=== PATIENT | female | born 1950 | race Caucasian/White ===

== ENCOUNTER → 2024-07-14 11:31 | Outpatient (BNVA) | payer MEDICARE, SELFPAY | PROVIDERS: PCP Physician Assistant Medical; Visit Provider Physician Assistant Medical | DX: R01.1 Cardiac murmur, unspecified (principal); E78.00 Pure hypercholesterolemia, unspecified; I10 Essential (primary) hypertension; R73.03 Prediabetes; M54.50 Low back pain, unspecified; M79.605 Pain in left leg; G89.29 Other chronic pain; M25.561 Pain in right knee; M25.562 Pain in left knee; M43.10 Spondylolisthesis, site unspecified; M17.0 Bilateral primary osteoarthritis of knee; M47.816 Spondylosis without myelopathy or radiculopathy, lumbar region; Z79.899 Other long term (current) drug therapy | CPT/HCPCS: 99212 ==

== ENCOUNTER 2025-01-12 07:48 | Outpatient (REF) | payer MEDICARE, SELFPAY ==
[2025-01-12 12:11] LABS: Alanine Aminotransferase 14 U/L (0-31); Albumin Level 4.1 g/dL (3.5-5.0); Alkaline Phosphatase 74 U/L (39-117); Anion Gap 12 (12-20); Aspartate Amino Transferase 23 U/L (5-31); Bilirubin Total 0.6 mg/dL (0.0-1.0); Blood Urea Nitrogen 21 mg/dL (9-16); Calcium 9.5 mg/dL (8.4-10.2); Carbon Dioxide 30 mmol/L (22-29); Chloride 104 mmol/L (96-108); Cholesterol 166 mg/dL (<200); Estimated Glomerular Filt Rate > 60; Glucose Random 127 mg/dL (60-115); HDL Cholesterol 79 mg/dL (>40); LDL Cholesterol Calculated 76 mg/dL (<100); Sodium 142 mmol/L (135-145); Triglycerides 58 mg/dL (<150)
[2025-01-12 12:16] LABS: Estimated Average Glucose 120 mg/dL; Hemoglobin A1c % 5.8 % (<6.0); Total Hemoglobin (HGBA1C) 3649.7575 umol/L
== END 2025-01-12 07:49 | disposition home or self-care (01) ==
LOC: HO.WFDLDS 07:48
PROVIDERS: Visit Provider Nurse Practitioner Family
DX: I10 Essential (primary) hypertension (principal); R73.03 Prediabetes
CPT/HCPCS: 36415; 80053; 80061; 83036

== ENCOUNTER 2025-01-15 08:02 | Outpatient (AMB) | payer MEDICARE, SELFPAY ==
--- NOTE | 2025-01-15 08:18 | AM.OFFVISMDC ---
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 Hypertension-taking atenolol 50 mg and amlodipine to 10 mg. She is still taking atenolol 50 mg. Her blood pressure is well-controlled. She was previously on chlorthalidone which was discontinued due to urinary frequency. Patient has not have the echocardiogram done yet that was ordered to evaluate her heart murmur. Denies chest pain, leg swelling, shortness of breath or palpitations. Patient says [facility] did not call her to schedule it. Anxiety-she did not tolerate duloxetine. She is taking 10 mg of Lexapro. She feels like this helps, and she wants to remain on the current dose. She has noticed significant decrease in anxiety with this medication. Hyperlipidemia-taking atorvastatin 20 mg daily. LDL is at goal. We reviewed her lab results. She had x-rays which showed spondylolisthesis in her lower back, degenerative changes in her lower back and moderate bilateral knee arthritis. She was referred to physiatry, but she is holding off on this because her back pain improved after she saw Orthopedics and had cortisone injections. She is having gel injections in January. She will receive tetanus immunization at her pharmacy. She declines colonoscopy. Agreeable to Cologuard. ROS: Constitutional: No unexplained weight loss, fever, chills, fatigue or night sweats. Respiratory: No shortness of breath Cardiovascular: No chest pain Neurologic: No headache, dizziness, syncope Endocrine: No polyuria or polydipsia. Psychiatric: No SI/HI. Physical exam: Constitutional: Alert, in no distress. Eyes: Pupils are equal, round and reactive to light. Extraocular muscles intact. Neck: Supple, Full range of motion. No lymphadenopathy. Respiratory: Clear to auscultation. Cardiovascular: S1 S2 regular. I-II/ systolic murmur Musculoskeletal: No lower extremity or knee swelling. No redness or warmth of knee joints. Bilateral knee crepitus. Left knee is stiff on exam but has full range of motion. Patient has pain with squatting. Antalgic gait. She has lower back pain with extension and flexion. No midline spinal tenderness. Extremities: Warm and well perfused. No clubbing, cyanosis or edema. Psychiatric: Normal mood and affect [facility] Medical History (Updated 12/17/24 @ 10:48 by Dolores Avila) Osteoarthritis of knees, bilateral Lumbar spondylosis Spondylolisthesis Low back pain radiating to left leg Bilateral knee pain Prediabetes Obesity Knee osteoarthritis Insomnia Hypokalemia HTN (hypertension) Hyperlipidemia Heart murmur Dense breast tissue Bilateral hand pain Anxiety state Surgical History (Updated 12/17/24 @ 10:48 by Dolores Avila) H/O: hysterectomy Social History (System 12/17/24 @ 10:48 by Dolores Avila) Housing: House Patient Tobacco Use Status: Former Tobacco user Cigarette Packs Per Day: 0.25 Years Smoked: 20 e-Cigarette/Vaping Use: Never Used Second Hand Smoke Exposure: No service: No Current occupational status: retired Cognitive needs: No Hearing needs: No Vision needs: No Questionnaire Mini Mental State Exam (MMSE) Orientation What is the (year) (season) (date) (day) (month)?: year (), season (spring), date (December), day () and month (December) Where are we (state) (county) (town or city) (hospital) (floor)?: state ([place]), county ([place]), town or city ([place]), hospital/clinic ([facility]) and floor ([place]) Registration Name of 3 unrelated objects clearly and slowly, then ask patient to repeat all 3 of them. (1st repeat determines score. Make sure they can repeat all three): object 1 (ball ), object 2 (flag) and object 3 (tree) Attention & Calculation (CHOOSE ONE) Ask pt to begin with 100 & count backward by 7. Stop after 5 repeats. If pt cannot ask them to spell the word WORLD backward.: 93 (93) Spell WORLD backwards (DLROW): 2 letters (DL) Recall Ask patient to repeat the 3 items from question #3.: object 1 (Flag), object 2 (tree) and object 3 (ball) Language Show patient a wristwatch & ask what it is. Repeat for pencil.: watch and pencil Ask the patient to repeat the phrase 'No ifs, ands, or buts' after you.: correct Ask the patient to 'take a piece of paper with their right hand' 'fold paper in half' 'place paper on floor': take paper in right hand, fold paper in half and place paper on floor Print the sentence 'CLOSE YOUR EYES' on a piece. If patient actually closes eyes then score.: followed written direction Give patient a blank piece of paper & ask to write a sentence. Score if it contains a noun & verb.: sentence contains subject and verb Ask patient to copy figure of intersecting pentagons exactly. Score if all 10 angles & 2 intersects are included.: all 10 angles present & 2 are intersected Score Score: 28 Physical Exam Vital Signs: Last Vital Signs Pulse 76 01/15/25 08:30 Resp 14 01/15/25 08:30 BP 126/62 01/15/25 08:30 Pulse Ox 95 01/15/25 08:30 Oxygen Delivery Method Room Air 01/15/25 08:30 BMI result Body Mass Index 36.3 Assessment & Plan Assessment & Plan Orders: Referrals Cologuard Test Z12.11 - Encounter for screening for malignant neoplasm of colon, Z12.12 - Encounter for screening for malignant neoplasm of rectum Coding
[2025-01-15 08:30] VITALS: BP 126/62; PULSE 76; RESP 14; O2SAT 95; BMI 36.3
--- NOTE | 2025-01-16 10:04 | MHC.OFFVIS ---
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 Hypertension-taking atenolol 50 mg and amlodipine to 10 mg. She is still taking atenolol 50 mg. Her blood pressure is well-controlled. She was previously on chlorthalidone which was discontinued due to urinary frequency. Patient has not have the echocardiogram done yet that was ordered to evaluate her heart murmur. Denies chest pain, leg swelling, shortness of breath or palpitations. Patient says [facility] did not call her to schedule it. Anxiety-she did not tolerate duloxetine. She is taking 10 mg of Lexapro. She feels like this helps, and she wants to remain on the current dose. She has noticed significant decrease in anxiety with this medication. Hyperlipidemia-taking atorvastatin 20 mg daily. LDL is at goal. We reviewed her lab results. She had x-rays which showed spondylolisthesis in her lower back, degenerative changes in her lower back and moderate bilateral knee arthritis. She was referred to physiatry, but she is holding off on this because her back pain improved after she saw Orthopedics and had cortisone injections. She is having gel injections in January. She will receive tetanus immunization at her pharmacy. She is prediabetic with a hemoglobin A1c of 5.9%. She declines colonoscopy. Agreeable to Cologuard. I ordered a mammogram last summer, but she did not have it done yet. She would like it done at [facility]. She was provided with the order and instructed to call to schedule this. ROS: Constitutional: No unexplained weight loss, fever, chills, fatigue or night sweats. Eyes: No vision changes, blurry vision, double vision, eye pain, eye redness, eye discharge. ENT: No hearing loss, sneezing, congestion, runny nose or sore throat. Respiratory: No shortness of breath, cough or sputum production. Cardiovascular: No chest pain, chest pressure or chest discomfort. No palpitations or pedal edema. Gastrointestinal: No anorexia, nausea, vomiting or diarrhea. No abdominal pain or blood in stool. Genitourinary: No dysuria, hematuria, urinary frequency. Neurologic: No headache, dizziness, syncope, unilateral weakness, ataxia, numbness or tingling in the extremities. Musculoskeletal: See HPI Hematologic/Lymphatics: No bleeding or bruising. No painful lymph nodes. Skin: No rash or itching. Endocrine: No cold or heat intolerance. No polyuria or polydipsia. Psychiatric: No depression or anxiety. No SI/HI. Physical exam: Constitutional: Alert, in no distress. Head: Normocephalic. Eyes: Pupils are equal, round and reactive to light. Extraocular muscles intact. Ear, Nose and Throat: Canals clear. TMs normal. Normal nasal mucosa. No nasal discharge. No oral lesions. Neck: Supple, Full range of motion. No lymphadenopathy. No palpable thyroid masses. Respiratory: Clear to auscultation. Cardiovascular: S1 S2 regular. 2/6 systolic murmur. No carotid bruits. Gastrointestinal: Abdomen soft, non-tender, non-distended. Normal bowel sounds. No palpable masses. Neurologic: No focal neurological deficits. Symmetric patellar reflexes. Moves all extremities spontaneously. Sensation intact bilaterally. Skin: No rashes Musculoskeletal: No gross deformities. Normal range of motion. Extremities: Warm and well perfused. Intact peripheral pulses. 1+ pedal edema. Psychiatric: Normal mood and affect [facility] Medical History (Updated 01/16/25 @ 10:01 by CHAITANYA Jansen) Routine physical examination Osteoarthritis of knees, bilateral Lumbar spondylosis Spondylolisthesis Low back pain radiating to left leg Bilateral knee pain Prediabetes Obesity Knee osteoarthritis Insomnia Hypokalemia HTN (hypertension) Hyperlipidemia Heart murmur Dense breast tissue Bilateral hand pain Anxiety state Surgical History (Updated 12/17/24 @ 10:48 by Dolores Avila) H/O: hysterectomy Social History (System 12/17/24 @ 10:48 by Dolores Avila) Housing: House Patient Tobacco Use Status: Former Tobacco user Cigarette Packs Per Day: 0.25 Years Smoked: 20 e-Cigarette/Vaping Use: Never Used Second Hand Smoke Exposure: No service: No Current occupational status: retired Cognitive needs: No Hearing needs: No Vision needs: No Physical Exam Vital Signs: Last Vital Signs Pulse 76 01/15/25 08:30 Resp 14 01/15/25 08:30 BP 126/62 01/15/25 08:30 Pulse Ox 95 01/15/25 08:30 Oxygen Delivery Method Room Air 01/15/25 08:30 BMI result Body Mass Index 36.3 Assessment & Plan Assessment & Plan (1) Routine physical examination: Code(s): Z00.00 - Encounter for general adult medical examination without abnormal findings Category: Medical Plan: Patient is seen today for a routine physical. As part of this visit we reviewed the following issues, which are considered and essential part of preventative health in this age group: - Breast Cancer screening - Annual Independent Distributor exam- declined - Screening for colon cancer - Cholesterol screening - Osteoporosis prevention including calcium/vitamin D intake, weight bearing exercise & smoking cessation - Nutritional and exercise counseling - Counseling of injury prevention including fire prevention, smoke alarms and seat belt usage - Screening for depression - Education about skin cancer - Recommendations about immunizations - Recommendation of an eye exam (2) HTN (hypertension): Code(s): I10 - Essential (primary) hypertension Category: Medical Qualifiers: Hypertension type: primary hypertension Qualified Code(s): I10 - Essential (primary) hypertension Plan: Controlled. Continue current regimen. Recommended low-sodium diet and avoidance of caffeine. (3) Hyperlipidemia: Code(s): E78.5 - Hyperlipidemia, unspecified Category: Medical Qualifiers: Hyperlipidemia type: pure hypercholesterolemia Qualified Code(s): E78.00 - Pure hypercholesterolemia, unspecified Plan: Controlled. Continue Mediterranean diet and cholesterol medication. (4) Heart murmur: Code(s): R01.1 - Cardiac murmur, unspecified Category: Medical Plan: [place] [facility] [place] agreed. (5) Prediabetes: Code(s): R73.03 - Prediabetes Category: Medical Plan: Patient declines medication against medical recommendation. Continue low carbohydrate, low sugar diet. Exercise to promote weight loss. Monitor. Plan Follow up in 6 months Orders: Referrals Cologuard Test Z12.11 - Encounter for screening for malignant neoplasm of colon, Z12.12 - Encounter for screening for malignant neoplasm of rectum Coding Level of Care Code Est Pt Prev Care >65y(45694) Diagnoses Routine physical examination Z00.00 Primary hypertension I10 Hypertension type: primary hypertension Pure hypercholesterolemia E78.00 Hyperlipidemia type: pure hypercholesterolemia Heart murmur R01.1 Prediabetes R73.03
== END 2025-01-15 09:13 | disposition home or self-care (01) ==
PROVIDERS: PCP Physician Assistant Medical; Visit Provider Physician Assistant Medical
DX: Z00.00 Encounter for general adult medical examination without abnormal findings (principal); I10 Essential (primary) hypertension; E78.00 Pure hypercholesterolemia, unspecified; R01.1 Cardiac murmur, unspecified; R73.03 Prediabetes

== ENCOUNTER → 2025-01-15 08:02 | Outpatient (BNVA) | payer MEDICARE, SELFPAY | PROVIDERS: PCP Physician Assistant Medical; Visit Provider Physician Assistant Medical | DX: Z00.00 Encounter for general adult medical examination without abnormal findings (principal); I10 Essential (primary) hypertension; M17.0 Bilateral primary osteoarthritis of knee; E66.9 Obesity, unspecified; R73.03 Prediabetes; E78.00 Pure hypercholesterolemia, unspecified; Z68.36 Body mass index [BMI] 36.0-36.9, adult; Z87.891 Personal history of nicotine dependence | CPT/HCPCS: 99397 ==

== ENCOUNTER 2025-07-16 07:58 | Outpatient (REF) | payer MEDICARE, SELFPAY ==
[2025-07-16 11:39] LABS: Hemoglobin A1C 148.1462 umol/L; Total Hemoglobin (HGBA1C) 3537.3461 umol/L
[2025-07-16 11:54] LABS: Anion Gap 13 (12-20); Blood Urea Nitrogen 21 mg/dL (9-16); Calcium 9.4 mg/dL (8.4-10.2); Carbon Dioxide 25 mmol/L (22-29); Chloride 110 mmol/L (96-108); Estimated Glomerular Filt Rate > 60; Potassium 3.1 mmol/L (3.3-5.1); Sodium 145 mmol/L (135-145)
== END 2025-07-16 07:59 | disposition home or self-care (01) ==
LOC: HO.WFDLDS 07:58
PROVIDERS: Visit Provider Physician Assistant Medical
DX: I10 Essential (primary) hypertension (principal); R73.9 Hyperglycemia, unspecified
CPT/HCPCS: 36415; 80048; 83036

== ENCOUNTER 2025-07-20 08:40 | Outpatient (AMB) | payer MEDICARE, SELFPAY ==
--- NOTE | 2025-07-20 08:45 | MHC.PC.OV ---
Vital Signs 07/20/25 08:50 07/20/25 09:20 Height 5 ft 3.8 in Weight 194 lb 6 oz BMI 33.6 BP 138/64 126/66 Blood Pressure Location Lt brachial Position Sitting Respiration 14 Pulse 93 Pulse Source Pulse Oximeter Temp 97.8 F Temp Source Temporal Artery Scan Pulse Oximetry (%) 94 Oxygen Delivery Method Room Air Intake Visit Reasons: follow up Intake Note: Dolores presents in the office today for a follow up to hypertension. Allergies No Known Allergies Allergy (Verified 07/20/25 08:48) Medication List - Last Reconciled 07/20/25 by CHAITANYA Jansen amlodipine 10 mg PO DAILY atenolol 50 mg PO DAILY atorvastatin 20 mg PO DAILY calcium carbonate 600 mg PO DAILY escitalopram oxalate (Lexapro) 10 mg PO DAILY multivitamin 1 tab PO DAILY Tobacco use date assessed: 07/20/25 Fall risk assessment: No Falls in past year Last assessed Fall Risk: 07/20/25 Dental Screening Dental Screen Date: 07/20/25 Did you have a dental visit in the last 12 months?: No Did you have a dental problem in the last 6 months where you did not have access to dental care?: No Was dental information given to patient?: Patient declined HPI HPI Comments History of Present Illness Details This is a 75-year-old female with a past medical history of anxiety, heart murmur, hyperlipidemia, hypertension, insomnia, osteoarthritis of her knees, obesity and prediabetes presenting for follow up. Patient had lab work done last week that showed mild hypokalemia. She is not on diuretics. She's had some loose stools that are more frequent and urgent for a couple weeks. Appetite is good. She did not do Cologuard. Symptoms are stable. No dietary changes. Denies family history of colon cancer. Denies blood in stools, abdominal pain, diarrhea, nausea, vomiting or recent travel. Hypertension-taking atenolol 50 mg and amlodipine to 10 mg. She was previously on chlorthalidone which was discontinued due to urinary frequency. Patient has not have the echocardiogram done yet that was ordered to evaluate her heart murmur. We have discussed this on more than 1 occasion. Denies chest pain, leg swelling, shortness of breath or palpitations. Anxiety-she did not tolerate duloxetine. She is taking 10 mg of Lexapro. She feels like this helps, and she wants to remain on the current dose. She has noticed significant decrease in anxiety with this medication. She still has healthcare anxiety. Hyperlipidemia-taking atorvastatin 20 mg daily. She had x-rays which showed spondylolisthesis in her lower back, degenerative changes in her lower back and moderate bilateral knee arthritis. She was referred to physiatry, but she is holding off on this because her back pain improved after she saw Orthopedics and had cortisone injections in her knees. She has knee injections scheduled today. She is prediabetic with a hemoglobin A1c of 6%. She started following a healthier diet since her retired, and she lost about 18 lb per her home scale. She still has not done her mammogram. She is due for bone density test. ROS: Constitutional: No unexplained weight loss, fever, chills, fatigue or night sweats. Respiratory: No shortness of breath, cough or sputum production. Cardiovascular: No chest pain, chest pressure or chest discomfort. Gastrointestinal: See HPI Genitourinary: No dysuria, hematuria, urinary frequency. Neurologic: No headache, dizziness, syncope, unilateral weakness, ataxia, numbness or tingling in the extremities. Musculoskeletal: See HPI Hematologic/Lymphatics: No bleeding or bruising. No painful lymph nodes. Skin: No rash Endocrine: No cold or heat intolerance. No polyuria or polydipsia. Psychiatric: No depression. +anxiety Physical exam: Constitutional: Alert, in no distress. Head: Normocephalic. Eyes: Pupils are equal, round and reactive to light. Extraocular muscles intact. Neck: Supple, Full range of motion. No lymphadenopathy. No palpable thyroid masses. Respiratory: Clear to auscultation. Cardiovascular: S1 S2 regular. 2/6 systolic murmur. No carotid bruits. Gastrointestinal: Abdomen soft, non-tender, non-distended. No rebound or guarding. Normal bowel sounds. No palpable masses. Extremities: Warm and well perfused. Intact peripheral pulses. 1+ pedal edema. Psychiatric: Normal mood and affect [facility] Medical History (Updated 07/20/25 @ 13:51 by CHAITANYA Jansen) Loose stools Routine physical examination Osteoarthritis of knees, bilateral Lumbar spondylosis Spondylolisthesis Low back pain radiating to left leg Bilateral knee pain Prediabetes Obesity Knee osteoarthritis Insomnia Hypokalemia HTN (hypertension) Hyperlipidemia Heart murmur Dense breast tissue Bilateral hand pain Anxiety state Surgical History (Updated 12/17/24 @ 10:48 by Dolores Avila) H/O: hysterectomy Social History (Updated 07/20/25 @ 08:50 by Albertina Palomo [facility]) Housing: House Alcohol intake: never Patient Tobacco Use Status: Former Tobacco user Cigarette Packs Per Day: 0.25 Years Smoked: 20 e-Cigarette/Vaping Use: Never Used Second Hand Smoke Exposure: No service: No Current occupational status: retired Current occupational exposures/hazards: No Cognitive needs: No Hearing needs: No Vision needs: No Questionnaire PHQ-9 Over the last 2 weeks, how often have you been bothered by any of the following problems? 1. Little interest or pleasure in doing things: not at all 2. Feeling down, depressed, or hopeless: not at all 3. Trouble falling or staying asleep, or sleeping too much: not at all 4. Feeling tired or having little energy: not at all 5. Poor appetite or overeating: not at all 6. Feeling bad about yourself - or that you are a failure or have let yourself or your family down: not at all 7. Trouble concentrating on things, such as reading the newspaper or watching television: not at all 8. Moving or speaking so slowly that other people could have noticed. Or the opposite - being so fidgety or restless that you have been moving around a lot more than usual: not at all 9. Thoughts that you would be better off or of hurting yourself in some way: not at all Total score: 0 Depression Screening Interpretation: Negative Depression Screening Done: Yes 55312 - PHQ-9 Billing: Yes Source: Developed by Drs. Artie Skelton, Bertha Ramsey, Deo Velasco and colleagues, with an educational jes from [employer]. Thrive Questionnaire Date Thrive assessed: 07/20/25 I am a: Patient What is your living situation today?: I have a steady place to live Within the past 12 months, did the food you bought not last and you didn't have the money to get more?: Never true Within the past 12 months, did you worry whether your food would run out before you got money to buy more?: Never true Do you have trouble paying for medicines?: No Do you have trouble getting transportation to medical appointments?: No Do you have trouble paying your heating and electricity bill?: No Do you have trouble taking care of your child, family member or friend?: No Do you have trouble with day-to-day activities such as bathing, preparing meals, shopping, managing finances, etc.?: No Are you currently unemployed and looking for a job?: No Are you interested in more education?: No Please select the resources that you would like help with: None Currently or been in a relationship where the following occur: No concerns reported THRIVE Score: 0 AUDIT C Alcohol Use Questionnaire (AUDIT-C) 1. How often do you have a drink containing alcohol?: Monthly or less 2. How many drinks containing alcohol do you have on a typical day when you are drinking?: 1 or 2 3. How often do you have six or more drinks on one occasion?: Never Total Score: 1 JAQUELINE-7 AMB Questionnaire JAQUELINE-7 Date JAQUELINE - 7 assessed: 07/20/25 Feeling nervous, anxious, or on edge: 0 = Not at all Not being able to stop or control worryin = Not at all Worrying too much about different things: 0 = Not at all Trouble relaxin = Not at all Being so restless that it is hard to sit still: 0 = Not at all Becoming easily annoyed or irritable: 0 = Not at all Feeling afraid as if something awful might happen: 0 = Not at all Total JAQUELINE-7 score (0-4 normal; 5-9 mild; 10-14 moderate; 15-21 severe): 0 Source: Developed by Drs. Artie Skelton, Bertha Ramsey, Deo Velasco and colleagues, with an educational jes from [employer]. JAQUELINE-7 Assessment Billing JAQUELINE-7 Assessment Tool: JAQUELINE-7 Assessment 05409 Physical exam (Primary Care) Vital Signs: Last Vital Signs Temp 97.8 F 07/20/25 08:50 Pulse 93 07/20/25 08:50 Resp 14 07/20/25 08:50 BP 126/66 07/20/25 09:20 Pulse Ox 94 07/20/25 08:50 Oxygen Delivery Method Room Air 07/20/25 08:50 BMI result Body Mass Index 33.6 Tobacco/Smoking Status: Tobacco use Status Tobacco use date assessed 07/20/25 07/20/25 08:54 Patient Tobacco Use Status Former Tobacco user 07/20/25 08:50 e-Cigarette/Vaping Use Never Used 07/20/25 08:50 PHQ-9: PHQ-9 Score PHQ-9: Total score 0 07/20/25 09:04 Depression Screening Interpretation: Negative Thrive Assessment: Date of Thrive Assessment Date Thrive assessed 07/20/25 07/20/25 08:54 Currently or been in a relationship where the following occur: No concerns reported Coding Level of Care Code Est Pt Level 4 (16633) Complex EM visit Add On G2211 Diagnoses Primary hypertension I10 Hypertension type: primary hypertension Pure hypercholesterolemia E78.00 Hyperlipidemia type: pure hypercholesterolemia Heart murmur R01.1 Prediabetes R73.03 Loose stools R19.5 Hypokalemia E87.6 Additional Codes JAQUELINE-7 Assessment Billing - JAQUELINE-7 Assessment Tool: JAQUELINE-7 Assessment 17902 ([id number]) PHQ-9 - 97557 - PHQ-9 Billing: Yes ([id number]) Assessment & Plan Assessment & Plan (1) HTN (hypertension): Code(s): I10 - Essential (primary) hypertension Category: Medical Qualifiers: Hypertension type: primary hypertension Qualified Code(s): I10 - Essential (primary) hypertension Plan: Controlled. Continue current regimen. Recommended low-sodium diet and avoidance of caffeine. (2) Hyperlipidemia: Code(s): E78.5 - Hyperlipidemia, unspecified Category: Medical Qualifiers: Hyperlipidemia type: pure hypercholesterolemia Qualified Code(s): E78.00 - Pure hypercholesterolemia, unspecified Plan: Controlled. Continue Mediterranean diet and cholesterol medication. (3) Heart murmur: Code(s): R01.1 - Cardiac murmur, unspecified Category: Medical Plan: Echocardiogram reordered to be done [facility]. I explained the importance of this to the patient and she agrees to have it done this time. (4) Prediabetes: Code(s): R73.03 - Prediabetes Category: Medical Plan: Patient has declined medication for prediabetes. Continue low carbohydrate, low sugar diet. Exercise to promote weight loss. Monitor. (5) Loose stools: Code(s): R19.5 - Other fecal abnormalities Category: Medical Plan: Exam and history with no red flags. Possible viral mild enteritis, IBS, food sensitivity. Colon cancer not high on the differential because she has no other symptoms, and this is only been going on a couple of weeks. IBD also low on differential since she has no blood or mucus in her stools, and she feels well. Patient will follow up bland diet the next couple of weeks, and she can take a probiotic or use Imodium as needed. If symptoms do not resolve over the next 10 days she will message me. If she develops blood in stools, abdominal pain, fevers she will go to the ER. (6) Hypokalemia: Code(s): E87.6 - Hypokalemia Category: Medical Plan: Recheck potassium Plan Follow up in 2 months. Addressed health maintenance with the patient. Bone density and mammogram and Cologuard ordered. Orders: Orders Potassium Today E87.6 - Hypokalemia MM screening mammo BI Today Z12.31 - Encounter for screening mammogram for malignant neoplasm of breast XR DEXA axial skeleton Today Z78.0 - Asymptomatic menopausal state CA echo transthoracic complete Today R01.1 - Cardiac murmur, unspecified Referrals Cologuard Test Z12.11 - Encounter for screening for malignant neoplasm of colon
[2025-07-20 08:50] VITALS: BP 138/64; PULSE 93; RESP 14; TEMP 36.6; O2SAT 94; BMI 33.6
[2025-07-20 09:20] VITALS: BP 126/66
== END 2025-07-20 09:31 | disposition home or self-care (01) ==
LOC: HO.HMCFM 08:40
PROVIDERS: PCP Physician Assistant Medical; Visit Provider Physician Assistant Medical
DX: I10 Essential (primary) hypertension (principal); E78.00 Pure hypercholesterolemia, unspecified; R01.1 Cardiac murmur, unspecified; R73.03 Prediabetes; R19.5 Other fecal abnormalities; E87.6 Hypokalemia

== ENCOUNTER 2025-07-20 08:40 | Outpatient (REF) | payer MEDICARE, SELFPAY ==
[2025-07-20 11:36] LABS: Potassium 3.4 mmol/L (3.3-5.1)
== END 2025-07-20 08:41 | disposition home or self-care (01) ==
LOC: HO.WFDLDS 08:40
PROVIDERS: PCP Physician Assistant Medical; Visit Provider Physician Assistant Medical
DX: E87.6 Hypokalemia (principal); I10 Essential (primary) hypertension; E78.00 Pure hypercholesterolemia, unspecified; R01.1 Cardiac murmur, unspecified; R73.03 Prediabetes; R19.5 Other fecal abnormalities; Z79.899 Other long term (current) drug therapy
CPT/HCPCS: 36415; 84132; 96127; 99212

== ENCOUNTER 2025-09-21 10:12 | Outpatient (AMB) | payer MEDICARE, SELFPAY ==
--- NOTE | 2025-09-21 10:25 | MHC.PC.OV ---
Vital Signs 09/21/25 10:35 Height 5 ft 3.8 in Weight 195 lb 6 oz BMI 33.7 BP 128/68 Blood Pressure Location Rt brachial Position Sitting Respiration 14 Pulse 84 Pulse Source Pulse Oximeter Temp 97.8 F Temp Source Temporal Artery Scan Pulse Oximetry (%) 95 Oxygen Delivery Method Room Air Intake Visit Reasons: follow up Intake Note: Ibeth presents in the office today for a follow up to hypertension and diabetes. Allergies No Known Allergies Allergy (Verified 09/21/25 10:34) Medication List - Last Reconciled 09/21/25 by CHAITANYA Jansen amlodipine 10 mg PO DAILY atenolol 50 mg PO DAILY atorvastatin 20 mg PO DAILY calcium carbonate 600 mg PO DAILY escitalopram oxalate (Lexapro) 10 mg PO DAILY multivitamin 1 tab PO DAILY Tobacco use date assessed: 09/21/25 Fall risk assessment: No Falls in past year Last assessed Fall Risk: 09/21/25 Dental Screening Dental Screen Date: 09/21/25 Did you have a dental visit in the last 12 months?: No Did you have a dental problem in the last 6 months where you did not have access to dental care?: No Was dental information given to patient?: Patient declined HPI HPI Comments History of Present Illness Details This is a 75-year-old female with a past medical history of anxiety, heart murmur, hyperlipidemia, hypertension, insomnia, osteoarthritis of her knees, obesity and prediabetes presenting for follow up. Hypertension-taking atenolol 50 mg and amlodipine to 10 mg. She was previously on chlorthalidone which was discontinued due to urinary frequency. She had an echocardiogram at [facility] on 09/03/2025 which showed no significant valve disease or regional wall motion abnormalities and LVEF 65%. Anxiety-she did not tolerate duloxetine. She is taking 10 mg of Lexapro. She feels like this helps, and she wants to remain on the current dose. She has noticed significant decrease in anxiety with this medication. She still has healthcare anxiety. Hyperlipidemia-taking atorvastatin 20 mg daily. She had x-rays which showed spondylolisthesis in her lower back, degenerative changes in her lower back and moderate bilateral knee arthritis. She was referred to physiatry, but she is holding off on this because her back pain improved after she saw Orthopedics and had cortisone injections in her knees. She also lost weight after modifying her diet, and this reduced her knee pain. She is prediabetic with a hemoglobin A1c of 6%. She started following a healthier diet since her retired 6 months ago. Mammogram showed no evidence of malignancy 09/03/2025. She had dense breast tissue and declined adjunct screening ultrasound. Bone density was done. Result requested. Cologuard negative August 2025. She received influenza vaccine at the pharmacy, and she says her other vaccinations are up-to-date. ROS: Constitutional: No unexplained weight loss, fever, chills, fatigue or night sweats. Respiratory: No shortness of breath, cough or sputum production. Cardiovascular: No chest pain, chest pressure or chest discomfort. Gastrointestinal: No nausea, vomiting, diarrhea or abdominal pain. Musculoskeletal: See HPI Psychiatric: No depression. +anxiety Physical exam: Constitutional: Alert, in no distress. Neck: Supple, Full range of motion. No lymphadenopathy. No palpable thyroid masses. Respiratory: Clear to auscultation. Cardiovascular: S1 S2 regular. 2/6 systolic murmur. Extremities: Warm and well perfused. 1+ pedal edema. Psychiatric: Normal mood and affect [facility] Medical History (Updated 09/21/25 @ 11:20 by CHAITANYA Jansen) Loose stools Routine physical examination Osteoarthritis of knees, bilateral Lumbar spondylosis Spondylolisthesis Low back pain radiating to left leg Bilateral knee pain Prediabetes Obesity Knee osteoarthritis Insomnia Hypokalemia HTN (hypertension) Hyperlipidemia Heart murmur Dense breast tissue Bilateral hand pain Anxiety state Surgical History (Updated 12/17/24 @ 10:48 by Dolores Avila) H/O: hysterectomy Social History (Updated 09/21/25 @ 10:35 by Albertina Palomo [facility]) Housing: House Alcohol intake: never Patient Tobacco Use Status: Former Tobacco user Cigarette Packs Per Day: 0.25 Years Smoked: 20 e-Cigarette/Vaping Use: Never Used Second Hand Smoke Exposure: No service: No Current occupational status: retired Current occupational exposures/hazards: No Cognitive needs: No Hearing needs: No Vision needs: No Questionnaire Thrive Questionnaire Date Thrive assessed: 07/13/25 I am a: Patient What is your living situation today?: I have a steady place to live Within the past 12 months, did the food you bought not last and you didn't have the money to get more?: Never true Within the past 12 months, did you worry whether your food would run out before you got money to buy more?: Never true Do you have trouble paying for medicines?: No Do you have trouble getting transportation to medical appointments?: No Do you have trouble paying your heating and electricity bill?: No Do you have trouble taking care of your child, family member or friend?: No Do you have trouble with day-to-day activities such as bathing, preparing meals, shopping, managing finances, etc.?: No Are you currently unemployed and looking for a job?: No Are you interested in more education?: No Please select the resources that you would like help with: None Currently or been in a relationship where the following occur: No concerns reported THRIVE Score: 0 JAQUELINE-7 AMB Questionnaire JAQUELINE-7 Date JAQUELINE - 7 assessed: 07/20/25 Source: Developed by Drs. Artie Skelton, Bertha Ramsey, Deo Velasco and colleagues, with an educational jes from [employer]. Physical exam (Primary Care) Vital Signs: Last Vital Signs Temp 97.8 F 09/21/25 10:35 Pulse 84 09/21/25 10:35 Resp 14 09/21/25 10:35 BP 128/68 09/21/25 10:35 Pulse Ox 95 09/21/25 10:35 Oxygen Delivery Method Room Air 09/21/25 10:35 BMI result Body Mass Index 33.7 Tobacco/Smoking Status: Tobacco use Status Tobacco use date assessed 09/21/25 09/21/25 10:38 Patient Tobacco Use Status Former Tobacco user 09/21/25 10:35 e-Cigarette/Vaping Use Never Used 09/21/25 10:35 Thrive Assessment: Date of Thrive Assessment Date Thrive assessed 07/13/25 09/21/25 10:28 Currently or been in a relationship where the following occur: No concerns reported Coding Level of Care Code Est Pt Level 4 (08826) Complex visit Add On G2211 Diagnoses Primary hypertension I10 Hypertension type: primary hypertension Pure hypercholesterolemia E78.00 Hyperlipidemia type: pure hypercholesterolemia Prediabetes R73.03 Assessment & Plan Assessment & Plan (1) HTN (hypertension): Code(s): I10 - Essential (primary) hypertension Category: Medical Qualifiers: Hypertension type: primary hypertension Qualified Code(s): I10 - Essential (primary) hypertension Plan: Controlled. Continue current regimen. Recommended low-sodium diet and avoidance of caffeine. (2) Hyperlipidemia: Code(s): E78.5 - Hyperlipidemia, unspecified Category: Medical Qualifiers: Hyperlipidemia type: pure hypercholesterolemia Qualified Code(s): E78.00 - Pure hypercholesterolemia, unspecified Plan: Controlled. Continue Mediterranean diet and cholesterol medication. (3) Prediabetes: Code(s): R73.03 - Prediabetes Category: Medical Plan: Patient has declined medication for prediabetes. Continue low carbohydrate, low sugar diet. Exercise to promote weight loss. Monitor. Plan Follow up in 6 months for CPE or MWV. Orders: Orders Comprehensive Met. Panel 6 Months E78.00 - Pure hypercholesterolemia, unspecified, I10 - Essential (primary) hypertension, R73.03 - Prediabetes Hemoglobin A1c 6 Months E78.00 - Pure hypercholesterolemia, unspecified, I10 - Essential (primary) hypertension, R73.03 - Prediabetes, R73.9 - Hyperglycemia, unspecified Complete Blood Count no Diff 6 Months E78.00 - Pure hypercholesterolemia, unspecified, I10 - Essential (primary) hypertension, R73.03 - Prediabetes Lipid Panel 6 Months E78.5 - Hyperlipidemia, unspecified, I10 - Essential (primary) hypertension, R73.03 - Prediabetes UA w Microscopic 6 Months E78.00 - Pure hypercholesterolemia, unspecified, I10 - Essential (primary) hypertension, R73.03 - Prediabetes
[2025-09-21 10:35] VITALS: BP 128/68; PULSE 84; RESP 14; TEMP 36.6; O2SAT 95; BMI 33.7
== END 2025-09-21 11:15 | disposition home or self-care (01) ==
LOC: HO.HMCFM 10:13
PROVIDERS: PCP Physician Assistant Medical; Visit Provider Physician Assistant Medical
DX: I10 Essential (primary) hypertension (principal); E78.00 Pure hypercholesterolemia, unspecified; R73.03 Prediabetes

== ENCOUNTER → 2025-09-21 10:12 | Outpatient (BNVA) | payer MEDICARE, SELFPAY | PROVIDERS: PCP Physician Assistant Medical; Visit Provider Physician Assistant Medical | DX: I10 Essential (primary) hypertension (principal); E78.00 Pure hypercholesterolemia, unspecified; R73.03 Prediabetes; F41.9 Anxiety disorder, unspecified; M17.0 Bilateral primary osteoarthritis of knee; M43.16 Spondylolisthesis, lumbar region; Z79.899 Other long term (current) drug therapy | CPT/HCPCS: 99212 ==